=== PATIENT | female | born 1955 | race Caucasian/White ===

== ENCOUNTER → 2020-12-14 | Outpatient (CLI) | payer OTHER | END | disposition home or self-care (01) | LOC: LABPAT 14:06 | PROVIDERS: ATTEND Orthopaedic Surgery | DX: Z01.812 Encounter for preprocedural laboratory examination (principal); M17.11 Unilateral primary osteoarthritis, right knee; Z22.322 Carrier or suspected carrier of Methicillin resistant Staphylococcus aureus | CPT/HCPCS: 87070 ==

== ENCOUNTER 2021-02-26 05:41 | Day surgery (SDC) | payer OTHER ==
[2021-02-21 17:48] VITALS: BMI 30.3
--- NOTE | 2021-02-25 12:06 | HP ---
HISTORY AND PHYSICAL REASON FOR ADMISSION: Surgery scheduled for 02/26/2021 HISTORY OF PRESENT ILLNESS: Haleigh Alexander is a 65-year-old patient seen with symptomatic right knee osteoarthritis. We discussed options for treatment. She elected to proceed with right total knee arthroplasty. Consent obtained. Medical clearance provided by Dr. Rangel. PAST MEDICAL HISTORY: Hypertension. PAST SURGICAL HISTORY: Cholecystectomy, hysterectomy, lumbar spine surgery. DAILY MEDICATIONS: Lisinopril, estradiol. ALLERGIES: None. SOCIAL HISTORY: She denies tobacco use. PHYSICAL EVALUATION OF THE RIGHT KNEE: Range of motion is -2 to 115 degrees. Tenderness medial joint line. Crepitus medial patellofemoral compartments with range of motion. Pain with patellofemoral compression. Ligaments stable. Hip rotation without pain. Distal neurovascular exam is intact. RADIOGRAPHS: Radiographs of the right knee reveal severe osteoarthritic changes. IMPRESSION: 1. Right knee osteoarthritis. 2. Hypertension. PLAN: Right total knee arthroplasty. Surgery scheduled for 02/26/2021. MMODL / IJN: [id number] /
[~2021-02-26 05:41] MED LIST: ACETAMINOPHEN TAB 500 MG TAB PO PRN; DEXAMETHASONE SOD PHOSPHATE 4 MG/ML 1 ML VIAL IV ONE; LACTATED RINGERS 1,000 ML IV SCH; MELOXICAM 7.5 MG TAB PO PRN; ONDANSETRON 4 MG/2 ML VIAL IVP ONE; TRANEXAMIC ACID 1,000 MG in SODIUM CHLORIDE 0.9% 100 ML IVPB PRN
[2021-02-26] MEDS ORDERED: MIDAZOLAM 2 MG/2 ML VIAL IV ONE (07:13)
[2021-02-26] MEDS ORDERED: .fentaNYL (PF) 50 MCG/ML 2 ML AMP IV ONE (07:13)
[2021-02-26] MEDS ORDERED: SODIUM CHLORIDE 0.9% 100 ML BAG ONE ×2 (07:28→08:45)
[2021-02-26] MEDS ORDERED: TRANEXAMIC ACID 1,000 MG/10 ML VIAL ONE (07:28)
[2021-02-26] MEDS ORDERED: PHENYLEPHRINE-0.9% NACL SYG 1,000 MCG/10 ML SYRINGE ONE (07:28)
[2021-02-26] MEDS ORDERED: SUCCINYLCHOLINE CHLORIDE 100 MG/5 ML SYR IV ONE (07:28)
[2021-02-26] MEDS ORDERED: LIDOCAINE 1% INJ 10MG/ML (20 ML MDV) ONE (07:28)
[2021-02-26] MEDS ORDERED: PROPOFOL 10 MG/ML 20 ML VIAL IV ONE ×2 (07:28→08:45)
[2021-02-26] MEDS ORDERED: ROPIVACAINE 5 MG/ML 30 ML VIAL ONE (07:28)
[2021-02-26] MEDS ORDERED: .fentaNYL (PF) 50 MCG/ML 2 ML AMP ONE ×2 (07:28→08:45)
[2021-02-26] MEDS ORDERED: HYDROmorphone (PF) 1 MG/ML ONE (07:28)
[2021-02-26] MEDS ORDERED: MIDAZOLAM 2 MG/2 ML VIAL ONE ×2 (07:28→08:45)
[2021-02-26] MEDS ORDERED: ceFAZolin 1,000 MG in SODIUM CHLORIDE 0.9% 1,000 ML IRRIGATION ONE (07:58)
[2021-02-26] MEDS ORDERED: ROPIVACAINE 0.2%-NS ON-Q PUMP 1,090 MG, EMPTY PAIN BALL 1 EACH MISCELLANE PRN (08:37)
--- NOTE | 2021-02-26 08:39 | P.ANPRN ---
Procedure Note - Anesthesia - Nerve Block Performed Right Adductor Canal Time Out Performed: Yes (07:12) Date of Procedure: 02/26/21 Procedure Start Time: : Procedure Stop Time: : Location of Patient: PreOp Indication: Acute Post-Operative Pain, Requested by Surgeon (Dr Macario) Sedation Type: Sedate with meaningful contact maintained Preparation: Sterile Prep, Sterile Dressing Position: Supine Catheter: Indwelling Needle Types: Pajunk Needle Gauge: 21 Ultrasound used to visualize needle placement: Yes Ultrasound used to observe medication spread: Yes Injectate: 0.5% Ropivacaine (see comment for volume) (15cc) Blood Aspirated: No Pain Paresthesia on Injection Noted: No Resistance on Injection: Normal Image Stored and Saved: Yes Events: Uneventful and Well Tolerated
--- NOTE | 2021-02-26 08:40 | P.ANPRN ---
Procedure Note - Anesthesia - Nerve Block Performed Right iPack Time Out Performed: Yes Date of Procedure: 02/26/21 Procedure Start Time: : Procedure Stop Time: : Location of Patient: PreOp Indication: Acute Post-Operative Pain, Requested by Surgeon (Dr Macario) Sedation Type: Sedate with meaningful contact maintained Preparation: Sterile Prep Position: Supine Catheter: None Needle Types: Pajunk Needle Gauge: 21 Ultrasound used to visualize needle placement: Yes Ultrasound used to observe medication spread: Yes Injectate: 0.5% Ropivacaine (see comment for volume) (15cc) Blood Aspirated: No Pain Paresthesia on Injection Noted: No Resistance on Injection: Normal Image Stored and Saved: Yes Events: Uneventful and Well Tolerated
[2021-02-26] MEDS ORDERED: diphenhydrAMINE 50 MG/ML 1 ML VIAL ONE (08:45)
[2021-02-26] MEDS ORDERED: CHLOROPROCAINE 3% 30 MG/ML 20 ML VIAL ONE (08:45)
[2021-02-26] MEDS ORDERED: KETAMINE 10 MG/ML 20 ML VIAL ONE (08:45)
[2021-02-26] MEDS ORDERED: ceFAZolin 1,000 MG VIAL ONE (08:45)
[2021-02-26] MEDS ORDERED: LACTATED RINGERS 1,000 ML IV ONE ×2 (09:02→09:21)
[2021-02-26] MEDS ORDERED: HYDROmorphone 0.5 MG/0.5 ML SYRINGE IVP PRN (09:21)
[2021-02-26] MEDS ORDERED: HYDROmorphone 1 MG/ML 1 ML SYRINGE IVP PRN (09:21)
[2021-02-26] MEDS ORDERED: HYDROcodone/APAP 5-325MG 1 EACH TAB PO PRN (09:21)
[2021-02-26] MEDS ORDERED: ONDANSETRON 4 MG/2 ML VIAL IVP PRN (09:21)
[2021-02-26] MEDS ORDERED: HYDROcodone/APAP 7.5-325MG 1 EACH TAB PO PRN (09:21)
[2021-02-26] MEDS ORDERED: NALOXONE 0.4 MG/ML 1 ML VIAL IV PRN (09:21)
[2021-02-26] MEDS ORDERED: HYDROmorphone 0.2 MG/1 ML SYRINGE IVP PRN (09:21)
--- NOTE | 2021-02-26 09:21 | P.OP ---
Date of Procedure: 02/26/21 Preoperative Diagnosis: Right knee osteoarthritis Postoperative Diagnosis: Right knee osteoarthritis Procedure(s) Performed: Right total knee arthroplasty Implants: 1. Depuy attune size 5 right cruciate retaining cemented femur 2. Depuy attune size 5 fixed bearing cemented tibial baseplate 3. Depuy attune size 5 fixed bearing cruciate retaining 7 mm polyethylene tibial insert 4. Depuy attune 38 mm all polyethylene cemented patella Anesthesia: GETA, regional (Adductor canal catheter, Ipack block) Surgeon: Jean Macario Portable Power Tool Repairer #1: Jovanny Marquez Estimated Blood Loss (ml): 50 Pathology: other (Bone) Condition: stable Disposition: PACU Indications for Procedure: 65-year-old patient seen with symptomatic right knee osteoarthritis. After having treatment options discussed, she elected to proceed with total knee arthroplasty. Operative Findings: See description of procedure Description of Procedure: Patient was taken to the operative suite after having an adductor canal catheter placed by the department of anesthesia as well as and Ipack block for postoperative pain management Patient underwent a general anesthetic by the department of anesthesia. Patient was given preoperative IV intake antibiotics and TXA. A well-padded tourniquet was placed about the right lower extremity. The lower extremity was then prepped and draped in the normal sterile orthopedic fashion. The extremity was elevated, a tourniquet was insufflated to 300. A standard anterior incision was made sharply through skin. Dissection was taken down through the subcutaneous soft tissues down to the extensor mechanism. A medial arthrotomy was performed, patella was everted and knee was flexed. There was advanced osteoarthritis noted. I introduced my distal intramedullary femoral drill. I then introduced the distal femoral cutting jig. Amador DOMINGUEZ secured the cutting jig with 2 pins. I held retractors in position while Amador DOMINGUEZ performed the distal femoral resection through the guide area we now removed her distal femoral cutting guide. We now placed our 4-in-1 femoral cutting block and positioned and it was secured with 2 pins by Amador gramajo I held the block in position. The distal femoral finishing was now completed. A proximal tibial cutting guide was positioned. I held the guide in the appropriate position with both hands while Amador DOMINGUEZ inserted stabilizing pins into the guide. Proximal tibial cut was made. We now placed a trial femoral component into position, along with an appropriate size tibial tray and insert. We now took the knee through range of motion and had full extension good flexion and good overall soft tissue balance noted. The patella was everted and stabilized with 2 towel clips held by Amador DOMINGUEZ while I performed a flush with patellar quad tendon utilizing a fresh sawblade. We templated the patella, appropriate drill holes were made. An appropriate trial patella was positioned, knee was taken through full range of motion with the patella tracking very nicely. The trial patella was removed. Drill holes were made through the femoral component. All trial components were removed after marking off the appropriate rotation of the tibia. Retractors were now positioned along the proximal tibia. An appropriate keel punch was made with the appropriate size tibial guide by myself on Amador DOMINGUEZ assisted by holding retractors. At this point appropriate size implants were chosen and opened. The joint was irrigated copiously with pulse lavage mechanical irrigation. The posterior capsule was infiltrated with local analgesic. The wound was irrigated with pulse lavage mechanical irrigation. We mixed antibiotic methylmethacrylate. We placed the knee into flexion. We placed multiple retractors assisted by Amador DOMINGUEZ to expose the proximal tibia. Once the methyl methacrylate was ready, the tibial component was cemented into place removing any excess methylmethacrylate form by both myself and Amador DOMINGUEZ. The femoral component was cemented into place removing the removing any excess methylmethacrylate performed by both myself and Amador DOMINGUEZ. We then inserted the appropriate size polyethylene tibial insert. We made sure that it was locked into position. We took the knee into full extension, and then back in a flexion making sure we had removed any excess methylmethacrylate. The patellar component was then cemented down and secured with clamp. Excess methylmethacrylate removed. We kept the knee in full extension, patellar clamp in position until methylmethacrylate had hardened. Once it had hardened the patellar clamp was removed. The knee was taken through full range of motion. The patella tracked nicely. There was good soft tissue balancing. The tourniquet was now released. Additional hemostasis was achieved via electrocautery. A second gram of TXA was given. The wound again was irrigated with pulse lavage mechanical irrigation. The superficial soft tissues were infiltrated local analgesic. The extensor mechanism was repaired with Vicryl. We checked the repair with range of motion and it was stable. The subcutaneous soft tissues were repaired with Vicryl in layers. The skin was approximated with pernio/Dermabond. Sterile dressings were applied followed by loose web roll and Demetrio bandage. The patient was transferred to a bed, and taken to recovery in stable and satisfactory condition. Amador DOMINGUEZ assisted with this complex procedure.
[2021-02-26 09:31] VITALS: TEMP 97.8
[2021-02-26] MEDS: HYDROmorphone 0.5 MG/0.5 ML SYRINGE IVP PRN ×2 (09:54→10:35)
--- NOTE | 2021-02-26 10:25 | XR ---
EXAMINATION TYPE: XR knee limited RT DATE OF EXAM: 02/26/2021 CLINICAL HISTORY: Right knee pain and arthritis status post total knee replacement. TECHNIQUE: Portable AP and crosstable lateral views of the right knee are obtained immediately posto peratively. COMPARISON: Outside right knee x-ray October 31, 2020 FINDINGS: Metallic hardware from total right knee arthroplasty is seen and appears satisfactory in a lignment and position. There is evidence of recent surgery with diffuse subcutaneous gas and soft ti ssue swelling noted. IMPRESSION: METALLIC HARDWARE FROM TOTAL RIGHT KNEE ARTHROPLASTY IS SATISFACTORY IN ALIGNMENT.
[2021-02-26] MEDS ORDERED: METOCLOPRAMIDE 5 MG/ML 2 ML VIAL ONE (12:30)
[2021-02-26] MEDS ORDERED: METOCLOPRAMIDE 5 MG/ML 2 ML VIAL IVP ONE (12:35)
[2021-02-26 12:51] VITALS: BP 152/77; PULSE 86; RESP 16
== END 2021-02-26 14:24 | disposition home health service (06) ==
LOC: OR 05:41
PROVIDERS: ATTEND Orthopaedic Surgery
DX: M17.11 Unilateral primary osteoarthritis, right knee (principal); I10 Essential (primary) hypertension; Z90.49 Acquired absence of other specified parts of digestive tract; Z90.710 Acquired absence of both cervix and uterus; Z98.890 Other specified postprocedural states; Z79.890 Hormone replacement therapy; Z79.899 Other long term (current) drug therapy
CPT/HCPCS: 27447; 97110; 97161; 64999; 64448; 76942; 88300; 73560; C1776; C1713 ×2; J2400; J2250; J1200; J1100; J2765; J0690 ×2; J2405; J2001; J3010; J1170 ×2; J2795 ×2; J2370; J0330; J2704; J1790